=== PATIENT | female | born 1995 | race Caucasian/White ===

== ENCOUNTER 2020-03-15 16:37 | Emergency (ER) | payer SELFPAY ==
[2020-03-15 17:45] LABS: BASOPHILS % (AUTO) 0.1 % (0.0-5.0); EOSINOPHILS % (AUTO) 2.8 % (0.0-8.0); HEMATOCRIT 35.7 % (36-48); LYMPHOCYTES % (AUTO) 24.5 % (21.0-51.0); MEAN CORPUSCULAR HEMOGLOBIN 28.9 pg (27.0-33.0); MEAN CORPUSCULAR HGB CONC 33.9 g/dL (32.0-36.0); MEAN CORPUSCULAR VOLUME 85.2 fL (79-99); MONOCYTES % (AUTO) 4.3 % (3.0-13.0); NEUTROPHILS % (AUTO) 67.6 % (40.0-77.0); PLATELET COUNT (AUTO) 319 K/uL (130-400); RED BLOOD CELL COUNT(AUTO) 4.19 MIL/uL (4.00-5.50); RED CELL DISTRIBUTION WIDTH 12.8 % (11.0-15.5); WHITE BLOOD COUNT (AUTO) 7.4 K/uL (4.8-10.8)
[2020-03-15 17:54] LABS: POTASSIUM 3.5 mmol/L (3.5-5.1)
[2020-03-15 17:59] LABS: ALBUMIN 2.2 g/dL (3.5-5.0); BILIRUBIN,TOTAL 0.2 mg/dL (0.2-1.0); TOTAL PROTEIN, SERUM 8.4 g/dL (6.0-8.3)
[2020-03-15] MEDS ORDERED: MORPHINE SULFATE 2 MG/ML 1ML SYG ONE (18:31)
[2020-03-15] MEDS ORDERED: LIDOCAINE HCL 2% JELLY 5 ML ONE (18:31)
== END 2020-03-15 19:44 | disposition home or self-care (01) ==
LOC: EDH 16:37
DX: E11.65 Type 2 diabetes mellitus with hyperglycemia (principal); R10.2 Pelvic and perineal pain; Z72.0 Tobacco use; Z98.890 Other specified postprocedural states
CPT/HCPCS: 36415; 80053; 82948; 85025; 96361; 96374

== ENCOUNTER 2020-04-15 18:44 | Emergency (ER) | payer OTHER ==
[2020-04-15] MEDS ORDERED: LIDOCAINE HCL 2% JELLY 5 ML ONE (19:44)
[2020-04-15] MEDS ORDERED: ACYCLOVIR 200 MG CAPSULE ONE (19:45)
[2020-04-15] MEDS ORDERED: ACETAMINOPHEN WITH CODEINE 1 TAB TAB ONE (19:45)
[2020-04-15] MEDS ORDERED: KETOROLAC 60 MG VIAL (30MG/ML) ONE (19:45)
== END 2020-04-15 20:19 | disposition home or self-care (01) ==
LOC: EDH 18:44
DX: A60.04 Herpesviral vulvovaginitis (principal); E11.9 Type 2 diabetes mellitus without complications
CPT/HCPCS: 96372; 99284; J1885

== ENCOUNTER 2020-10-04 21:35 | Emergency (ER) | payer OTHER ==
[~2020-10-04] VITALS: Ht 165.1 cm; Wt 90.7 kg
[2020-10-04] MEDS ORDERED: LIDOCAINE HCL 2% JELLY 5 ML ONE (22:52)
[2020-10-04] MEDS: LIDOCAINE HCL 2% JELLY 5 ML TP SCH (23:00)
[2020-10-04] MEDS ORDERED: ACYCLOVIR 200 MG CAPSULE PO ONE (23:00)
[2020-10-04] MEDS ORDERED: 0.9%NACL 1000ML 1,000 ML IV ONE (23:00)
[2020-10-04] MEDS ORDERED: KETOROLAC 30MG VIAL (30MG/ML) IVP ONE (23:00)
[2020-10-04] MEDS ORDERED: INSULIN HUMULIN R 100 UNIT/ML 3ML IV ONE (23:00)
[2020-10-04] MEDS ORDERED: MORPHINE 4 MG SYG IVP ONE (23:00)
[2020-10-04] MEDS ORDERED: ONDANSETRON 4MG TABLET PO ONE (23:00)
[2020-10-04 23:30] LABS: BASOPHILS % (AUTO) 0.3 % (0.0-5.0); EOSINOPHILS % (AUTO) 2.4 % (0.0-8.0); HEMATOCRIT 35.3 % (36-48); LYMPHOCYTES % (AUTO) 22.8 % (21.0-51.0); MEAN CORPUSCULAR HEMOGLOBIN 28.3 pg (27.0-33.0); MEAN CORPUSCULAR HGB CONC 34.3 g/dL (32.0-36.0); MEAN CORPUSCULAR VOLUME 82.5 fL (79-99); MONOCYTES % (AUTO) 4.2 % (3.0-13.0); PLATELET COUNT (AUTO) 303 K/uL (130-400); RED BLOOD CELL COUNT(AUTO) 4.28 MIL/uL (4.00-5.50); WHITE BLOOD COUNT (AUTO) 10.5 K/uL (4.8-10.8)
[2020-10-04 23:48] LABS: ALBUMIN 2.7 g/dL (3.5-5.0); BILIRUBIN,TOTAL 0.3 mg/dL (0.2-1.0); CREATININE 1.1 mg/dL (0.5-1.5); CRP QUANTITATIVE 26.9 mg/L (0.00-9.0); TOTAL PROTEIN, SERUM 8.1 g/dL (6.0-8.3)
[2020-10-04 23:50] VITALS: BP 141/79
[2020-10-05 00:06] LABS: APPEARANCE,URINE Clear (CLEAR); BILIRUBIN,URINE Negative (NEGATIVE); COLOR,URINE Yellow (YELLOW); GLUCOSE, URINE (UA) >=1000 mg/dL (NEGATIVE); KETONES,URINE 15 mg/dL (NEGATIVE); LEUKOCYTE ESTERASE ,URINE Trace (NEGATIVE); NITRATE,URINE Negative (NEGATIVE); OCCULT BLOOD,URINE Moderate (NEGATIVE); PH,URINE 6.5 (5.0-8.0); PROTEIN,URINE POS 2+ mg/dL (NEGATIVE)
[2020-10-05 00:22] LABS: BACTERIA,URINE Few /HPF (None Seen); TRICHOMONAS,URINE Few /LPF (None Seen)
[2020-10-05 00:32] LABS: ABG BASE EXCESS -0.3 mmol/L (-2.0-3.0); ABG HCO3 24.5 mmol/L (21.0-28.0); ABG OXYGEN SATURATION 96.2 % (95.0-99.0); ABG PCO2 41 mmHg (32-45)
[2020-10-05 02:17] VITALS: BP 132/72
[2020-10-05] MEDS ORDERED: VALA10002 PO (03:57)
[2020-10-05] MEDS ORDERED: METF-446 PO (03:57)
[2020-10-05] MEDS ORDERED: MORPHINE 5 MG/ML VIAL (5MG OR GREATER DOSE) ONE (04:23)
[2020-10-05] MEDS ORDERED: INSULIN HUMULIN R 100 UNIT/ML 3ML ONE (04:24)
[2020-10-05] MEDS ORDERED: INSULIN HUMULIN R 100 UNIT/ML 3ML SQ ONE (04:30)
[2020-10-05] MEDS ORDERED: MORPHINE 10 MG SYG IM ONE (04:30)
[2020-10-05] MEDS: LIDOCAINE HCL 2% JELLY 5 ML TP SCH (04:33)
[2020-10-05 04:43] VITALS: BP 128/76
== END 2020-10-05 04:46 | disposition home or self-care (01) ==
LOC: EDH 21:35
DX: A60.04 Herpesviral vulvovaginitis (principal); E11.65 Type 2 diabetes mellitus with hyperglycemia; E66.9 Obesity, unspecified; Z98.890 Other specified postprocedural states
CPT/HCPCS: 36415; 36600; 80053; 81001; 82010; 82803; 82948 ×3; 83605; 84703; 85025; 86140; 87088; 96361; 96374; 96375; 99284; J1815 ×2; J1885; J2270 ×2; J7030; Q0162

== ENCOUNTER 2024-07-03 09:12 | Day surgery (SDC) | payer MEDICARE ==
[~2024-07-03] VITALS: Ht 165.1 cm; Wt 86.2 kg
[2024-07-03] VITALS (13 sets, daily range): BP systolic 159–192; BP diastolic 73–95; PULSE 73–87; RESP 16–20; TEMP 97.3–98.1
[~2024-07-03 09:12] MED LIST: METF-446 PO; VALA10002 PO
[2024-07-03] MEDS: 0.9% NACL 500ML IV.SOLN 500 ML IV ONE (10:08)
[2024-07-03] MEDS ORDERED: proPOFol 10 MG/ML 20ML VIAL IV ONE (11:05)
[2024-07-03] MEDS: hydrALAZine 20MG/ML VIAL ONE (12:02)
== END 2024-07-03 12:50 ==
LOC: DAH 09:12 → ENDO 09:12
PROVIDERS: ATTEND Internal Medicine Gastroenterology
DX: R19.4 Change in bowel habit (principal); R12 Heartburn; K31.89 Other diseases of stomach and duodenum; K29.50 Unspecified chronic gastritis without bleeding; R11.0 Nausea; R14.0 Abdominal distension (gaseous); R14.2 Eructation; I10 Essential (primary) hypertension; E11.9 Type 2 diabetes mellitus without complications; Z79.899 Other long term (current) drug therapy
CPT/HCPCS: 00731; 84703; 82948 ×2; 36415; 43239; 45378; J7040; J0360; J2704; A4215; A4223; A4222; A4221; A4663; A4216; A4606; J3490

== ENCOUNTER 2024-07-05 06:58 | Day surgery (SDC) | payer MEDICARE ==
[2024-07-05] VITALS (10 sets, daily range): BP systolic 160–184; BP diastolic 83–92; PULSE 72–85; RESP 15–17; TEMP 97.4–97.9
[~2024-07-05] VITALS: Ht 165.1 cm; Wt 86.2 kg
[~2024-07-05 06:58] MED LIST changes: +0.9%NACL 1000ML 0 ML IV ONE; -METF-446 PO; -VALA10002 PO
[2024-07-05] MEDS: 0.9% NACL 500ML IV.SOLN 500 ML IV ONE (09:04)
[2024-07-05] MEDS ORDERED: proPOFol 10 MG/ML 20ML VIAL IV ONE (09:39)
[2024-07-05] MEDS ORDERED: LOSA100T59 PO (10:38)
--- NOTE | 2024-07-05 11:06 | NUR ---
Full and complete discharge instructions given to Patient and Family both verbally and in writing. Explained GI procedure precautions and follow up. All questions answered. PIV removed with catheter tip intact. Home with Family W/C to POV.
== END 2024-07-05 10:55 | disposition home or self-care (01) ==
LOC: ENDO 06:58 → DAH 06:58 → ENDO 10:55
PROVIDERS: ATTEND Internal Medicine Gastroenterology
DX: R19.4 Change in bowel habit (principal); K63.89 Other specified diseases of intestine; E66.9 Obesity, unspecified; E11.22 Type 2 diabetes mellitus with diabetic chronic kidney disease; N18.9 Chronic kidney disease, unspecified; R14.2 Eructation; Z79.899 Other long term (current) drug therapy
CPT/HCPCS: 45380; 82948 ×2; J7040; J2704; A4615; A4215; A4223; A4657; A4222; A4221; A4663; J7030; A4606; J3490